=== PATIENT | female | born 1950 | race American Indian/Alaskan Native ===

== ENCOUNTER 2019-03-16 07:44 | Day surgery (SDC) | payer MEDICARE ==
[2019-03-16 07:28] LABS: Basophils # (Auto) 0.1 K/mm3 (0.0-0.1); Basophils % (Auto) 0.9 % (0.0-1.8); Eosinophils # (Auto) 0.6 K/mm3 (0.0-0.4); Hematocrit 42.1 % (30.3-42.9); Hemoglobin 14.4 gm/dl (10.1-14.3); Lymphocytes % (Auto) 13.4 % (13.4-35.0); Mean Corpuscular HGB Conc 34 % (30-34); Mean Corpuscular Volume 83 fl (79-97); Monocytes # (Auto) 0.7 K/mm3 (0.0-0.8); Monocytes % (Auto) 4.9 % (0.0-7.3); Platelet Count 250 K/mm3 (140-440); Red Blood Count 5.04 M/mm3 (3.65-5.03)
[2019-03-16 07:42] LABS: BUN/Creatinine Ratio 15; Blood Urea Nitrogen 12 mg/dL (7-17); Calcium 9.7 mg/dL (8.4-10.2); Hemolysis Index 0
[~2019-03-16 07:44] MED LIST: SODIUM CHLORIDE 0.9% 500 ML 500 ML IV SCH
[2019-03-16 08:05] LABS: INR 1.06 (0.87-1.13)
--- NOTE | 2019-03-16 10:08 | Event Note ---
Date: 03/16/19 Patient presented for elective outpatient angioplasty of the circumflex. Labs show a leukocytosis of 15,000, and patient reports ongoing symptoms of sinus congestion, productive cough and dysuria. No fever. We have canceled the planned coronary intervention for today, prescribed ciprofloxacin 500 mg twice a day, follow-up with the PCP and reschedule coronary intervention for next week. The patient and his family understands, and agree with the recommended plan.
== END 2019-03-16 10:28 | disposition home or self-care (01) ==
LOC: CATHLABREC 07:44
PROVIDERS: ATTEND Internal Medicine Cardiovascular Disease
DX: Z53.8 Procedure and treatment not carried out for other reasons (principal); I20.0 Unstable angina; E78.00 Pure hypercholesterolemia, unspecified; I10 Essential (primary) hypertension; K21.9 Gastro-esophageal reflux disease without esophagitis; F32.9 Major depressive disorder, single episode, unspecified; M19.90 Unspecified osteoarthritis, unspecified site; Z79.899 Other long term (current) drug therapy; Z79.84 Long term (current) use of oral hypoglycemic drugs
CPT/HCPCS: 36415; 80048; 85025; 85610; 85730; 93005; 93010; J7040